=== PATIENT | female | born 1960 ===

== ENCOUNTER 2018-11-29 20:11 | Inpatient (IN) | payer MEDICAID, OTHER ==
--- NOTE | 2018-11-29 20:43 | ED PDOC ---
HPI: Chest Pain Time Seen by Provider: 11/29/18 20:30 Chief Complaint (Nursing): Chest Pain Chief Complaint (Provider): Chest Pain History Per: Patient History/Exam Limitations: no limitations Onset/Duration Of Symptoms: Hrs (since 1700 tonight) Current Symptoms Are (Timing): Still Present Additional Complaint(s): 58 year old female with no significant pmhx presents to the ED for evaluation of chest pain associated with intermittent shortness of breath since 1700 tonight. Otherwise denies fever, chills, nausea, vomiting, diarrhea, abdominal pain, leg pain, and headache. PMD: [place] Past Medical History Reviewed: Historical Data, Nursing Documentation, Vital Signs Vital Signs: Last Vital Signs Temp 98 F 11/29/18 20:18 Pulse 59 L 11/29/18 20:18 Resp 18 11/29/18 20:18 BP 160/92 H 11/29/18 20:18 Pulse Ox 98 11/29/18 20:18 - Medical History PMH: No Chronic Diseases - Surgical History Surgical History: No Surg Hx - Family History Family History: States: Unknown Family Hx - Social History Current smoker - smoking cessation education provided: No Alcohol: None Drugs: Denies - Allergies Allergies/Adverse Reactions: Allergies Allergy/AdvReac Type Severity Reaction Status Date / Time No Known Allergies Allergy Verified 11/29/18 20:18 Review of Systems ROS Statement: Except As Marked, All Systems Reviewed And Found Negative Constitutional: Negative for: Fever, Chills Cardiovascular: Positive for: Chest Pain Respiratory: Positive for: Shortness of Breath (intermittent) Gastrointestinal: Negative for: Nausea, Vomiting, Abdominal Pain, Diarrhea Musculoskeletal: Negative for: Leg Pain Neurological: Negative for: Headache Physical Exam - Reviewed Nursing Documentation Reviewed: Yes Vital Signs Reviewed: Yes - Physical Exam Appears: Positive for: No Acute Distress Head Exam: Positive for: ATRAUMATIC, NORMAL INSPECTION, NORMOCEPHALIC Skin: Positive for: Normal Color, Warm, DRY Eye Exam: Positive for: Normal appearance Neck: Positive for: Normal, Painless ROM, Supple Cardiovascular/Chest: Positive for: Regular Rate, Rhythm, Chest Non Tender Respiratory: Positive for: Normal Breath Sounds. Negative for: Accessory Muscle Use, Respiratory Distress Gastrointestinal/Abdominal: Positive for: Normal Exam, Soft. Negative for: Tenderness Back: Positive for: Normal Inspection Extremity: Positive for: Normal ROM (all extremities actively) Neurologic/Psych: Positive for: Alert, Oriented (x3). Negative for: Mo tor/Sensory Deficits - Laboratory Results Result Diagrams: 11/29/18 21:36 11/29/18 21:36 Lab Results: 27 bun - ECG ECG: Positive for: Interpreted By Me, Viewed By Me ECG Rhythm: Positive for: Normal QRS, Normal ST Segment, Sinus Rhythm O2 Sat by Pulse Oximetry: 98 (RA) Pulse Ox Interpretation: Normal - Radiology X-Ray: Interpreted by Me, Viewed By Me X-Ray Interpretation: No Acute Disease - Progress ED Course And Treament: 2245: Spoke with Dr. Leger. Will admit tele obs. Pain free. Medical Decision Making Medical Decision Making: Time: 2021 Initial Impression: chest pain Initial Plan: --EKG --CMP --Lipase --Trop I --CBC with differential --PT / PTT --CXR --Aspirin 325mg PO --Normal saline IV Scribe Attestation: Documented by Nhung Reed, acting as a scribe for Quentin Tamez MD. Provider Scribe Attestation: All medical record entries made by the Scribe were at my direction and personally dictated by me. I have reviewed the chart and agree that the record accurately reflects my personal performance of the history, physical exam, medical decision making, and the department course for this patient. I have also personally directed, reviewed, and agree with the discharge instructions and disposition. Disposition - Clinical Impression Clinical Impression: Chest pain - Patient ED Disposition Is Patient to be Admitted: Yes Counseled Patient/Family Regarding: Studies Performed, Diagnosis - Disposition Disposition Time: 20:45 Condition: FAIR
[2018-11-29] MEDS ORDERED: Sodium Chloride 0.9% 500 ML IV STA (20:52)
[2018-11-29 21:40] LABS: BASO # 0.1 K/uL (0.0-0.2); BASO % 0.9 % (0.0-2.0); EOS # 0.2 K/uL (0.0-0.7); EOS % 2.7 % (0.0-4.0); HEMOGLOBIN 12.8 g/dL (12.0-16.0); LYMPH # 2.2 K/uL (1.0-4.3); LYMPH % 35.3 % (20.0-40.0); MEAN CELL VOLUME 84.7 fl (81.0-99.0); MEAN CORPUSCULAR HEMOGLOBIN 27.3 pg (27.0-31.0); MEAN CORPUSCULAR HGB CONC 32.2 g/dL (33.0-37.0); MEAN PLATELET VOLUME 7.6 fl (7.2-11.7); MONO # 0.5 K/uL (0.0-0.8); MONO % 8.3 % (0.0-10.0); NEUT # 3.3 K/uL (1.8-7.0); NEUT % 52.8 % (50.0-75.0); RBC 4.69 Mil/uL (3.80-5.20); RED CELL DISTRIBUTION WIDTH 13.9 % (11.5-14.5); WHITE BLOOD COUNT 6.3 K/uL (4.8-10.8)
[2018-11-29 21:44] LABS: PROTHROMBIN TIME 11.3 Seconds (9.8-13.1)
[2018-11-29 21:47] LABS: PARTIAL THROMBOPLASTIN TIME 32.6 Seconds (25.6-37.1)
[2018-11-29 21:49] LABS: ALB/GLOB RATIO 1.2 (1.0-2.1); ALBUMIN 4.2 g/dL (3.5-5.0); ALT/SGPT 23 U/L (9-52); AST/SGOT 25 U/L (14-36); BLOOD UREA NITROGEN 27 mg/dl (7-17); GFR NON-AFRICAN AMERICAN > 60; LIPASE 75 U/L (23-300)
[2018-11-29] MEDS ORDERED: Sodium Chloride 0.9% 1,000 ML IV SCH (23:45)
--- NOTE | 2018-11-29 23:59 | CP.PCM.HP ---
<Melissa Fofana - Last Filed: 11/30/18 00:58> History of Present Illness - History of Present Illness History of Present Illness: 58 YO female with PMH of hypothyroidism who presents to the ED with c/o chest pain that started at 5 PM, located in the retrosternal area, 6/10 in intensity, pressure like pain, with some radiation to the back. Patient reports that she was at rest when the pain started (denies strenuous activities at time of pain onset), she reports the pain was associated with some sensation of fatigue and palpitations. Patient states she has been feeling some fatigue and occasional palpitation in the last 5 to 6 months, but has never had similar episodes of chest pain before. Patient endorses she was told she had hypothyroidism in the past, received treatment for a period of time and then her thyroid problem normalized and she is not taking any treatment at this time. Patient denies SOB, abdominal pain, heartburn, N/V/D, swallowing problems, diaphoresis, headache, fever, chills, or cough. Patient reports that her chest pain has subsided at the time of this encounter. ROS: All systems reviewed and found unremarkable, except as per HPI PMHx: Hypothyroidism FMHx: Denies MEDS: None ALLERGY: NKDA SOCHx: Denies Smoking, Rec drug use. Social occasional ETOH use. SURG: None personal financial planner: Donnell Ascencio [phone] Full code PMD: [place] ED Course: VS on arrival : HR 59, BP 160/92, RR 18, O2Sat 98%, Temp 98F Labs: CBC CMP unremarkable, Lipase 76, Troponin <0.0120 (-), CXR no infiltration noted EKG: NSR, no ST elevation or depression, inversion of T V2 and aVL MEDS administered in ED: Aspirin 325 mg PO x1 dose Present on Admission - Present on Admission Any Indicators Present on Admission: No History of DVT/PE: No History of Uncontrolled Diabetes: No Urinary Catheter: No Decubitus Ulcer Present: No Past Patient History - Past Social History Alcohol: None Drugs: Denies - CARDIAC Hx Cardiac Disorders: No - PULMONARY Hx Respiratory Disorders: No - NEUROLOGICAL Hx Neurological Disorder: No - PSYCHIATRIC Hx Psychophysiologic Disorder: No Hx Substance Use: No - SURGICAL HISTORY Hx Cholecystectomy: Yes Hx Tubal Ligation: Yes Hx Vascular Surgery: Yes (varicose veins) Meds Allergies/Adverse Reactions: Allergies Allergy/AdvReac Type Severity Reaction Status Date / Time No Known Allergies Allergy Verified 11/29/18 20:18 Physical Exam - Constitutional Appears: No Acute Distress - Head Exam Head Exam: ATRAUMATIC, NORMOCEPHALIC - Eye Exam Eye Exam: EOMI - ENT Exam ENT Exam: Mucous Membranes Moist - Neck Exam Neck exam: Positive for: Full Rom. Negative for: Tenderness, Thyromegaly - Respiratory Exam Respiratory Exam: Chest Wall Tenderness (mild reproducible pain to palpation of left lower sternum area), Clear to Auscultation Bilateral. absent: Wheezes - Cardiovascular Exam Cardiovascular Exam: REGULAR RHYTHM, RRR, +S1, +S2 - GI/Abdominal Exam GI & Abdominal Exam: Normal Bowel Sounds, Soft. absent: Tenderness - Extremities Exam Extremities exam: Negative for: calf tenderness, pedal edema - Back Exam Back exam: absent: rash noted - Neurological Exam Neurological exam: Alert, Oriented x3 - Psychiatric Exam Psychiatric exam: Normal Affect - Skin Skin Exam: Dry, Normal Color, Warm Results - Vital Signs Recent Vital Signs: Last Vital Signs Temp 98 F 11/29/18 20:18 Pulse 57 L 11/29/18 20:48 Resp 18 11/29/18 20:18 BP 169/82 H 11/29/18 20:48 Pulse Ox 98 11/29/18 22:46 - Labs Result Diagrams: 11/29/18 21:36 11/29/18 21:36 Labs: Laboratory Results - last 24 hr 11/29/18 11/29/18 11/29/18 21:36 21:36 21:36 WBC 6.3 RBC 4.69 Hgb 12.8 Hct 39.7 MCV 84.7 MCH 27.3 MCHC 32.2 L RDW 13.9 Plt Count 290 MPV 7.6 Neut % (Auto) 52.8 Lymph % (Auto) 35.3 [place] % (Auto) 8.3 Eos % (Auto) 2.7 Baso % (Auto) 0.9 Neut # (Auto) 3.3 Lymph # (Auto) 2.2 [place] # (Auto) 0.5 Eos # (Auto) 0.2 Baso # (Auto) 0.1 PT 11.3 INR 1.0 APTT 32.6 Sodium 138 Potassium 4.2 Chloride 102 Carbon Dioxide 26 Anion Gap 14 BUN 27 H Creatinine 0.8 Est GFR ( Amer) > 60 Est GFR (Non-Af Amer) > 60 Random Glucose 116 H Calcium 10.0 Total Bilirubin 0.3 AST 25 ALT 23 Alkaline Phosphatase 119 Troponin I < 0.0120 Total Protein 7.9 Albumin 4.2 Globulin 3.6 Albumin/Globulin Ratio 1.2 Lipase 75 11/29/18 21:36 WBC RBC Hgb Hct MCV MCH MCHC RDW Plt Count MPV Neut % (Auto) Lymph % (Auto) [place] % (Auto) Eos % (Auto) Baso % (Auto) Neut # (Auto) Lymph # (Auto) [place] # (Auto) Eos # (Auto) Baso # (Auto) PT INR APTT Sodium Potassium Chloride Carbon Dioxide Anion Gap BUN Creatinine Est GFR ( Amer) Est GFR (Non-Af Amer) Random Glucose Calcium Total Bilirubin AST ALT Alkaline Phosphatase Troponin I Total Protein Albumin Globulin Albumin/Globulin Ratio Lipase 76 Assessment & Plan - Assessment and Plan (Free Text) Assessment: 58 YO female with PMH of hypothyroidsm who presents with c/o chest pain located in the retrosternal area, 6/10 in intensity, pressure like pain, with some radiation to the back, with elevated BP at time of presentation and admitted to observation for Chest pain. 1.Chest pain -Telemtetry monitoring -VS Q4h, attention to BP -Troponin I: Troponin <0.0120 (-), repeat x2 more Q6h -EKG: NSR, no ST elevation or depression, inversion of T V2 aVL -Repeat EKG in ED ordered -EKG in AM -Aspirin 81 mg PO QD -NTG SL 0.4 Q5min x 3 dose PRN for chest pain -Lipid panel, f/u results -HbA1C, f/u results 2. History of Hypothyroidsm -TSH, f/u results 3.DVT prophylaxis -SCDs Code Status: Full code <Erwin Leger - Last Filed: 11/30/18 06:46> Results - Vital Signs Recent Vital Signs: Last Vital Signs Temp 97.8 F 11/30/18 02:30 Pulse 58 L 11/30/18 05:00 Resp 18 11/30/18 05:00 BP 116/80 11/30/18 05:00 Pulse Ox 97 11/30/18 05:00 - Labs Result Diagrams: 11/29/18 21:36 11/29/18 21:36 Labs: Laboratory Results - last 24 hr 11/29/18 11/29/18 11/29/18 21:36 21:36 21:36 WBC 6.3 RBC 4.69 Hgb 12.8 Hct 39.7 MCV 84.7 MCH 27.3 MCHC 32.2 L RDW 13.9 Plt Count 290 MPV 7.6 Neut % (Auto) 52.8 Lymph % (Auto) 35.3 [place] % (Auto) 8.3 Eos % (Auto) 2.7 Baso % (Auto) 0.9 Neut # (Auto) 3.3 Lymph # (Auto) 2.2 [place] # (Auto) 0.5 Eos # (Auto) 0.2 Baso # (Auto) 0.1 PT 11.3 INR 1.0 APTT 32.6 Sodium 138 Potassium 4.2 Chloride 102 Carbon Dioxide 26 Anion Gap 14 BUN 27 H Creatinine 0.8 Est GFR ( Amer) > 60 Est GFR (Non-Af Amer) > 60 Random Glucose 116 H Calcium 10.0 Total Bilirubin 0.3 AST 25 ALT 23 Alkaline Phosphatase 119 Troponin I < 0.0120 Total Protein 7.9 Albumin 4.2 Globulin 3.6 Albumin/Globulin Ratio 1.2 Triglycerides 237 H Cholesterol 209 H LDL Cholesterol Direct 96 HDL Cholesterol 68 Lipase 75 TSH 3rd Generation 6.26 H 11/29/18 11/30/18 21:36 04:25 WBC RBC Hgb Hct MCV MCH MCHC RDW Plt Count MPV Neut % (Auto) Lymph % (Auto) [place] % (Auto) Eos % (Auto) Baso % (Auto) Neut # (Auto) Lymph # (Auto) [place] # (Auto) Eos # (Auto) Baso # (Auto) PT INR APTT Sodium Potassium Chloride Carbon Dioxide Anion Gap BUN Creatinine Est GFR ( Amer) Est GFR (Non-Af Amer) Random Glucose Calcium Total Bilirubin AST ALT Alkaline Phosphatase Troponin I < 0.0120 Total Protein Albumin Globulin Albumin/Globulin Ratio Triglycerides Cholesterol LDL Cholesterol Direct HDL Cholesterol Lipase 76 TSH 3rd Generation Attending/Attestation - Attestation I have personally seen and examined this patient.: Yes I have fully participated in the care of the patient.: Yes I have reviewed all pertinent clinical information: Yes Notes (Text): 11/30/18 06:27 I saw and examined this patient with Dr Velez and Dr Andrews. I agree with the assessment and plan which represent y direct input. This is a 58 years old female with vague hx of being told that her blood pressure was elevated comes with retrosternal chest pain radiating to the back, relieved after receiving Aspirin in the ED as per patient. Initial Troponin was negative, EKG with T inversion in V1, V2, aVl. The patient will be placed on observation with serial Troponin, daily Aspirin, a nd Sublingual Nitroglycerin. consult with Cardiology and ECHO is ordered for wall motion. Treat Hypertension, Follow Thyroid Profile for Hypothyroidism, IV fluids for the Dehydration. Erwin Leger MD
[2018-11-30 00:50] LABS: HDL CHOLESTEROL 68 MG/DL (30-70)
[2018-11-30 01:01] LABS: LDL CHOLESTEROL 96 mg/dL (0-129)
[2018-11-30] MEDS ORDERED: Pneumococcal 23-Valent Vaccine IM ONE (06:00)
[2018-11-30] MEDS ORDERED: Influenza Vaccine 60 mcg/0.5 mL SYR (4YR UP) IM ONE (06:00)
[2018-11-30] MEDS ORDERED: Influenza Vaccine (5 YR UP)/PF 60 MCG/0.5 ML SYR IM ONE (06:00)
[2018-11-30] MEDS ORDERED: Sodium Chloride 0.45% 1,000 ML IV SCH (06:45)
--- NOTE | 2018-11-30 08:56 | CARD ---
APPROVED REPORT Date of service: 11/30/2018 EKG Measurement Heart [id number] 200P50 [id number] <Conclusion> Sinus rhythm with premature ventricular complexes Nonspecific T wave abnormality Prolonged QT Abnormal ECG
[2018-11-30] MEDS ORDERED: Pantoprazole 40 mg EC Tab PO SCH (09:00)
--- NOTE | 2018-11-30 09:07 | CARD ---
APPROVED REPORT Date of service: 11/29/2018 EKG Measurement Heart [id number] <Conclusion> Sinus bradycardia Otherwise normal ECG
--- NOTE | 2018-11-30 10:31 | RAD ---
Date of service: 11/29/2018 HISTORY: dyspnea COMPARISON: No prior. FINDINGS: LUNGS: Trace linear atelectasis or fibrosis right base. No infiltrate bilaterally. PLEURA: No significant pleural effusion identified, no pneumothorax apparent. CARDIOVASCULAR: No aortic atherosclerotic calcification present. Normal cardiac size. No pulmonary vascular congestion. OSSEOUS STRUCTURES: No significant abnormalities. VISUALIZED UPPER ABDOMEN: Normal. OTHER FINDINGS: None. IMPRESSION: Trace linear atelectasis or fibrosis right base with remaining lung corrales otherwise clear. No pulmonary vascular congestion.
--- NOTE | 2018-11-30 17:33 | CARD ---
APPROVED REPORT Date of service: 11/30/2018 EXAM: Two-dimensional and M-mode echocardiogram with Doppler and color Doppler. Other Information Quality : GoodRhythm : NSR INDICATION Abnormal EKG/Arrhythmia Chest Pain 2D DIMENSIONS IVSd1.12 (0.7-1.1cm)LVDd3.91 (3.9-5.9cm) LVOT Diameter2.37 (1.8-2.4cm)PWd0.97 (0.7-1.1cm) IVSs1.04 (0.8-1.2cm)LVDs2.69 (2.5-4.0cm) FS (%) 31.2 %PWs1.71 (0.8-1.2cm) M-Mode DIMENSIONS Left Atrium (MM)4.56 (2.5-4.0cm)IVSd1.06 (0.7-1.1cm) Aortic Root2.94 (2.2-3.7cm)LVDd4.62 (4.0-5.6cm) Aortic Cusp Exc.1.97 (1.5-2.0cm)PWd1.24 (0.7-1.1cm) IVSs1.68 cmFS (%) 49 % LVDs2.35 (2.0-3.8cm)PWs1.56 cm Aortic Valve AoV Peak Xyozrzgv964.5cm/sAoV VTI21.1cmAO Peak GR.4mmHg LVOT Peak Atiaowyz67.1cm/sLVOT VTI16.31cmAO Mean GR.2mmHg JESSICA (VMAX)1.27yk6EGK (VTI)2.08cm2 Mitral Valve MV E Pkilwyvz27.9cm/sMV DECEL [id number] A Dmdmpjbs50.8cm/s MV KZZ95loP/A ratio1.2MVA (PHT)2.73cm2 TDI Lateral E' Peak V7.01cm/sMedial E' Peak V5.54cm/sE/Lateral E'9.8 E/Medial E'12.4 Tricuspid Valve TR Peak Sgdhdjot082lt/sRAP QYMNHTYV88sbUbAP Peak Gr.27mmHg [id number] LEFT VENTRICLE The left ventricle is normal size. There is normal left ventricular wall thickness. The left ventricular systolic function is normal. The estimated ejection fraction is 55-60% No regional wall motion abnormalities noted.. Transmitral Doppler flow pattern is Grade II-pseudonormal filling dynamics. No left ventricle thrombus noted on this study. There is no ventricular septal defect visualized. There is no left ventricular aneurysm. There is no mass noted in the left ventricle. RIGHT VENTRICLE The right ventricle is normal size. There is normal right ventricular wall thickness. The right ventricular systolic function is normal. ATRIA The left atrium is mildly dilated. The right atrium size is normal. The interatrial septum likely has small ASD or PFO, demonstrated by color doppler. AORTIC VALVE The aortic valve is normal in structure. No aortic regurgitation is present. There is no aortic valvular stenosis. There is no aortic valvular vegetation. MITRAL VALVE The mitral valve is normal in structure. There is no evidence of mitral valve prolapse. There is no mitral valve stenosis. There is no mitral valve regurgitation noted. TRICUSPID VALVE The tricuspid valve is normal in structure. There is mild tricuspid valve regurgitation noted. RVSP is calculated at 35 mm Hg. There is no tricuspid valve prolapse or vegetation. There is no tricuspid valve stenosis. PULMONIC VALVE The pulmonary valve is normal in structure. There is no pulmonic valvular regurgitation. There is no pulmonic valvular stenosis. GREAT VESSELS The aortic root is normal in size. The ascending aorta is normal in size. The pulmonary artery is normal. The IVC is normal in size and collapses >50% with inspiration. PERICARDIAL EFFUSION There is no pericardial effusion. There is no pleural effusion. <Conclusion> The estimated ejection fraction is 55-60% Transmitral Doppler flow pattern is Grade II-pseudonormal filling dynamics. The left atrium is mildly dilated. The interatrial septum likely has small ASD or PFO, demonstrated by color doppler. There is mild tricuspid valve regurgitation noted. RVSP is calculated at 35 mm Hg.
--- NOTE | 2018-11-30 18:10 | CP.PCM.PN ---
<Burton Ibanez - Last Filed: 11/30/18 18:45> Subjective - Date & Time of Evaluation Date of Evaluation: 11/30/18 Time of Evaluation: 10:00 - Subjective Subjective: Patient seen and evaluated at bedside during morning rounds. Patient's reports resolution of chest pain but reports right shoulder pain which is reproducible. Patient comfortable in bed. NAD. No acute events overnight. Tolerating diet well PO. Denies any dizziness, headache, SOB, abdominal pain, nausea, vomiting, diarrhea. Echo, cardio consult tomorrow. Objective - Vital Signs/Intake and Output Vital Signs (last 24 hours): Temp Pulse Resp BP Pulse Ox 98.4 F 67 23 135/71 97 11/30/18 12:00 11/30/18 17:00 11/30/18 17:00 11/30/18 17:00 11/30/18 17:00 Intake and Output: 11/30/18 11/30/18 06:59 18:59 Intake Total 625 Balance 625 - Medications Medications: Current Medications Amlodipine Besylate (Norvasc) 5 mg PO DAILY [facility] Last Admin: 11/30/18 08:29 Dose: 5 mg Aspirin (Aspirin Chewable) 81 mg PO DAILY [facility] Last Admin: 11/30/18 08:30 Dose: 81 mg Atorvastatin Calcium (Lipitor) 40 mg PO DAILY [facility] Last Admin: 11/30/18 08:29 Dose: 40 mg Clopidogrel Bisulfate (Plavix) 75 mg PO DAILY [facility] Nitroglycerin (Nitrostat Sl Tab) 0.4 mg SL Q5M PRN PRN Reason: chest pain Pantoprazole Sodium (Protonix Ec Tab) 40 mg PO DAILY [facility] Last Admin: 11/30/18 08:30 Dose: 40 mg - Labs Labs: 11/29/18 21:36 11/29/18 21:36 PT 11.3 Seconds (9.8-13.1) 11/29/18 21:36 INR 1.0 11/29/18 21:36 APTT 32.6 Seconds (25.6-37.1) 11/29/18 21:36 - Constitutional Appears: Well, No Acute Distress - Head Exam Head Exam: ATRAUMATIC, NORMAL INSPECTION, NORMOCEPHALIC - Eye Exam Eye Exam: EOMI, Normal appearance - ENT Exam ENT Exam: Mucous Membranes Moist - Neck Exam Neck Exam: Full ROM - Respiratory Exam Respiratory Exam: Clear to Ausculation Bilateral, NORMAL BREATHING PATTERN. absent: Rales, Rhonchi, Wheezes, Respiratory Distress - Cardiovascular Exam Cardiovascular Exam: REGULAR RHYTHM, +S1, +S2. absent: Murmur - GI/Abdominal Exam GI & Abdominal Exam: Soft, Normal Bowel Sounds. absent: Distended, Tenderness - Extremities Exam Extremities Exam: absent: Pedal Edema, Tenderness - Back Exam Back Exam: NORMAL INSPECTION - Neurological Exam Neurological Exam: Alert, Awake, Oriented x3 - Psychiatric Exam Psychiatric exam: Normal Affect, Normal Mood - Skin Skin Exam: Dry, Intact, Normal Color, Warm Assessment and Plan - Assessment and Plan (Free Text) Assessment: 58 YO female with PMH of hypothyroidsm who presents with c/o chest pain located in the retrosternal area, 6/10 in intensity, pressure like pain, with some radiation to the back, with elevated BP at time of presentation and admitted for evaluation of Chest pain. Plan: Chest pain -Telemtetry monitoring - VSS, CP resolved -Troponin I x 3 negative -EKG: NSR, no ST elevation or depression, inversion of T V2 aVL, repeat EKG NSR, nonspecific t wave abnormality -Continue Aspirin 81 mg PO QD -HbA1C, 6.2 -Cardiology consulted, Will follow recs -Echocardiogram: EF 55-60%, Grade 2 diastolic dysfunction, Mild left atrial enlargement, ASD vs PFO interatrial, RSVP 35 mg hg -Follow up tomorrow by cardiothoracic surgeon tomorrow. HTN - On amlodipine 5 mg PO daily - Monitor vitals Hyperlipidemia - Total cholesterol 209, TG 237, LDL 96, HDL 68 - Started on Atorvastatin 40 mg PO daily History of Hypothyroidsm -TSH, f/u results DVT prophylaxis -SCDs Code Status: Full code <GirardNatashamally Renae - Last Filed: 11/30/18 19:14> Objective - Vital Signs/Intake and Output Vital Signs (last 24 hours): Temp Pulse Resp BP Pulse Ox 98.4 F 67 23 135/71 97 11/30/18 12:00 11/30/18 17:00 11/30/18 17:00 11/30/18 17:00 11/30/18 17:00 Intake and Output: 11/30/18 12/01/18 18:59 06:59 Intake Total 745 Balance 745 - Medications Medications: Current Medications Amlodipine Besylate (Norvasc) 5 mg PO DAILY [facility] Last Admin: 11/30/18 08:29 Dose: 5 mg Aspirin (Aspirin Chewable) 81 mg PO DAILY [facility] Last Admin: 11/30/18 08:30 Dose: 81 mg Atorvastatin Calcium (Lipitor) 40 mg PO DAILY [facility] Last Admin: 11/30/18 08:29 Dose: 40 mg Clopidogrel Bisulfate (Plavix) 75 mg PO DAILY [facility] Enoxaparin Sodium (Lovenox) 40 mg SC DAILY [facility]; Protocol Nitroglycerin (Nitrostat Sl Tab) 0.4 mg SL Q5M PRN PRN Reason: chest pain Pantoprazole Sodium (Protonix Ec Tab) 40 mg PO DAILY [facility] Last Admin: 11/30/18 08:30 Dose: 40 mg - Labs Labs: 11/29/18 21:36 11/29/18 21:36 PT 11.3 Seconds (9.8-13.1) 11/29/18 21:36 INR 1.0 11/29/18 21:36 APTT 32.6 Seconds (25.6-37.1) 11/29/18 21:36 Attending/Attestation - Attestation I have personally seen and examined this patient.: Yes I have fully participated in the care of the patient.: Yes I have reviewed all pertinent clinical information, including history, physical exam and plan: Yes Notes (Text): Chest Pain, ACS ruled out, pain likely musculoskeletal as this was reproducible Small ASD seen on ECHO, Mildly elevated Pulm Art Pressure , asymptomatic HTN - Trop x 3 neg - nonsp change on EKG - ECHO showed small ASD vs PFO, 35mm RSVP -Discussed case with Dr Gutiérrez- rec to start ASA, Plavix, he rec to keep pt until eval by Cardio thoracic surgeon DR Watson - start Stain -TSH sl elevated but T4 normal
--- NOTE | 2018-12-01 00:50 | CON ---
DATE: 11/30/2018 CARDIOLOGY CONSULTATION REASON FOR CONSULTATION: Chest pain. HISTORY OF PRESENT ILLNESS: The patient is a 58-year-old female, who has no significant past medical history, presents because of chest pain associated with intermittent shortness of breath on the night of admission. The patient is unaware of any prior cardiac history and was not treated for hypertension in the past. At the time of my evaluation, the patient was chest pain free. SOCIAL HISTORY: Nonsmoker, nondrinker. MEDICATIONS: Aspirin 81 mg once a day, Lipitor 40 mg once a day, sublingual nitroglycerin p.r.n., Norvasc 5 mg once a day, Protonix 40 mg once a day. REVIEW OF SYSTEMS: No nausea or vomiting. No productive cough. No chest pain or shortness of breath at the time of my evaluation. PHYSICAL EXAMINATION: GENERAL: The patient is a middle-aged female, who does not appear to be in acute distress. VITAL SIGNS: Blood pressure 144/74, heart rate 79, temperature 98.1, respirations 19. HEENT: Normocephalic. CHEST: Clear. HEART: S1 and S2, regular. ABDOMEN: Soft. EXTREMITIES: No edema. LABORATORY DATA: Admitting hemoglobin, hematocrit, white count, and platelet count are within normal limits. SMA-7 is within normal limits except for glucose of 116 and BUN of 27. Three sets of troponins are negative. Triglycerides 237, total cholesterol 209. TSH level is elevated at 6.26. EKG revealed sinus rhythm with premature ventricular complexes, nonspecific T-wave changes, prolonged QT interval. Chest x-ray showed trace linear atelectasis or fibrosis right base with remaining field otherwise clear. ASSESSMENT: 1. Chest pain, myocardial infarction is ruled out. 2. Hypertension. 3. Hyperlipidemia. RECOMMENDATIONS: Continue aspirin 81 mg once a day, Lipitor 40 mg once a day, Norvasc 5 mg once a day, and p.r.n. nitroglycerin. I will review the echocardiographic study performed today and I will obtain serum D-dimer as well as urine for drug screen. Balta Gutiérrez MD [facility] # [id number]
--- NOTE | 2018-12-01 05:39 | CP.PCM.CON ---
History of Present Illness - History of Present Illness History of Present Illness: Cardiothoracic Surgery Consult Note for Dr. Watson HPI: 58F, past medical history of hypothyroidism, consulted for evidence of atrial septal defect vs. patent foramen ovale Echocardiography. Patient initially came to the hospital with chest pain on Friday that started at 5PM and lasted for 3 hours. Patient came to the ED and had a cardiac workup done with negative troponins. Unaware of any congenital heart defects/problems. Denies any current chest pain or palpitations. Denies syncope or shortness of breath with exertion. Denies fever, chills, nausea, vomiting, shortness of breath, headaches, dizziness, or urinary symptoms. PMH: Hypothyroidism PSH: Cholecystectomy, Tubal Ligation FH: Noncontributory SH: Denies tobacco, alcohol, drugs ALL: NKDA Meds: See MAR Review of Systems - Constitutional Constitutional: absent: Chills, Fever - EENT Eyes: absent: Blurred Vision, Change in Vision Nose/Mouth/Throat: absent: Nasal Congestion, Nasal Discharge - Cardiovascular Cardiovascular: absent: Chest Pain, Dyspnea, Palpitations - Respiratory Respiratory: absent: Cough, Dyspnea - Gastrointestinal Gastrointestinal: absent: Abdominal Pain, Nausea, Vomiting - Genitourinary Genitourinary: absent: Difficulty Urinating, Dysuria - Musculoskeletal Musculoskeletal: absent: Back Pain, Neck Pain - Integumentary Integumentary: absent: Bleeding Lesions, Changing Lesions - Neurological Neurological: absent: Confusion, Dizziness - Psychiatric Psychiatric: absent: Anxiety, Depression Past Patient History - Past Medical History & Family History Past Medical History?: No - Past Social History Smoking Status: Never Smoked - CARDIAC Hx Cardiac Disorders: No - PULMONARY Hx Respiratory Disorders: No - NEUROLOGICAL Hx Neurological Disorder: No - HEENT Hx HEENT Problems: No - RENAL Hx Chronic Kidney Disease: No - ENDOCRINE/METABOLIC Hx Endocrine Disorders: No - HEMATOLOGICAL/ONCOLOGICAL Hx Blood Disorders: No - INTEGUMENTARY Hx Dermatological Problems: No - MUSCULOSKELETAL/RHEUMATOLOGICAL Hx Musculoskeletal Disorders: No Hx Falls: No - GASTROINTESTINAL Hx Gastrointestinal Disorders: No - GENITOURINARY/GYNECOLOGICAL Hx Genitourinary Disorders: No - PSYCHIATRIC Hx Psychophysiologic Disorder: No Hx Substance Use: No - SURGICAL HISTORY Hx Surgeries: Yes Hx Cholecystectomy: Yes Hx Tubal Ligation: Yes Hx Vascular Surgery: Yes (varicose veins) - ANESTHESIA Hx Anesthesia: Yes Hx Anesthesia Reactions: Yes Hx Malignant Hyperthermia: No Meds Allergies/Adverse Reactions: Allergies Allergy/AdvReac Type Severity Reaction Status Date / Time No Known Allergies Allergy Verified 11/29/18 20:18 - Medications Medications: Current Medications Amlodipine Besylate (Norvasc) 5 mg PO DAILY [facility] Last Admin: 11/30/18 08:29 Dose: 5 mg Aspirin (Aspirin Chewable) 81 mg PO DAILY [facility] Last Admin: 11/30/18 08:30 Dose: 81 mg Atorvastatin Calcium (Lipitor) 40 mg PO DAILY [facility] Last Admin: 11/30/18 08:29 Dose: 40 mg Clopidogrel Bisulfate (Plavix) 75 mg PO DAILY [facility] Last Admin: 11/30/18 21:00 Dose: 75 mg Enoxaparin Sodium (Lovenox) 40 mg SC DAILY [facility]; Protocol Famotidine (Pepcid) 20 mg PO BID [facility] Last Admin: 11/30/18 21:00 Dose: 20 mg Nitroglycerin (Nitrostat Sl Tab) 0.4 mg SL Q5M PRN PRN Reason: chest pain Physical Exam - Constitutional Appears: Well, Non-toxic, No Acute Distress - Head Exam Head Exam: ATRAUMATIC, NORMAL INSPECTION, NORMOCEPHALIC - Eye Exam Eye Exam: EOMI - ENT Exam ENT Exam: Mucous Membranes Moist - Respiratory Exam Respiratory Exam: NORMAL BREATHING PATTERN. absent: Respiratory Distress - Cardiovascular Exam Cardiovascular Exam: REGULAR RHYTHM. absent: Tachycardia - GI/Abdominal Exam GI & Abdominal Exam: Normal Bowel Sounds, Soft. absent: Tenderness - Neurological Exam Neurological exam: Alert, Oriented x3 - Psychiatric Exam Psychiatric exam: Normal Affect, Normal Mood - Skin Skin Exam: Dry, Intact, Normal Color, Warm Results - Vital Signs Recent Vital Signs: Last Vital Signs Temp 98.2 F 12/01/18 01:00 Pulse 62 12/01/18 01:00 Resp 21 12/01/18 01:00 BP 137/79 12/01/18 01:00 Pulse Ox 95 12/01/18 01:00 - Labs Result Diagrams: 12/01/18 04:20 12/01/18 04:20 Labs: Laboratory Results - last 24 hr 11/30/18 11/30/18 11/30/18 00:00 07:25 11:50 D-Dimer, Quantitative Hemoglobin A1c 6.2 Troponin I < 0.0120 Free T4 0.83 11/30/18 14:30 D-Dimer, Quantitative < 200 Hemoglobin A1c Troponin I Free T4 Assessment & Plan - Assessment and Plan (Free Text) Assessment: 58F w/ ASD vs PFO seen on ECHO, initially came with chest pain now resolved Plan: No immediate surgical intervention at this time Follow up outpatient with Dr. Watson - contact info: , please make appointment at earliest convenience D/w Dr. Walter Abel PGY1
[2018-12-01 05:44] LABS: HEMOGLOBIN 13.2 g/dL (12.0-16.0); MEAN CELL VOLUME 84.2 fl (81.0-99.0); MEAN CORPUSCULAR HEMOGLOBIN 27.4 pg (27.0-31.0); MEAN CORPUSCULAR HGB CONC 32.6 g/dL (33.0-37.0); RBC 4.8 Mil/uL (3.80-5.20); RED CELL DISTRIBUTION WIDTH 14.3 % (11.5-14.5); WHITE BLOOD COUNT 5.9 K/uL (4.8-10.8)
[2018-12-01 05:58] LABS: ALB/GLOB RATIO 0.9 (1.0-2.1); ALBUMIN 3.6 g/dL (3.5-5.0); ALT/SGPT 21 U/L (9-52); AST/SGOT 26 U/L (14-36); BLOOD UREA NITROGEN 23 mg/dl (7-17); GFR NON-AFRICAN AMERICAN > 60
[2018-12-01 06:08] LABS: BARBITURATES, UR NEGATIVE (NEGATIVE); BENZODIAZEPINES, UR NEGATIVE (NEGATIVE); OPIATES, UR NEGATIVE (NEGATIVE); PHENCYCLIDINE, UR NEGATIVE (NEGATIVE)
[2018-12-01] MEDS: Enoxaparin 40 mg Syringe SC SCH (08:45)
--- NOTE | 2018-12-01 10:49 | CP.PCM.DIS ---
Provider - Provider Date of Admission: 11/29/18 22:51 Attending physician: Erwin Leger Consults: 11/30/18 06:14 Cardiology Consult Routine Comment: Consulting Provider: Balta Gutiérrez Consulting Physician: Balta Gutiérrez Reason for Consult: Chest Pain/abnormal EKG 11/30/18 17:53 Physician Consult Routine Comment: Consulting Provider: Ayden Watson Consulting Physician: Ayden Watson Reason for Consult: ? ASD Time Spent in preparation of Discharge (in minutes): 35 Diagnosis - Discharge Diagnosis (1) Chest pain Status: Acute (2) Hypertension Status: Acute Hospital Course - Lab Results Lab Results: Most Recent Lab Values WBC 5.9 K/uL (4.8-10.8) 12/01/18 04:20 RBC 4.80 Mil/uL (3.80-5.20) 12/01/18 04:20 Hgb 13.2 g/dL (12.0-16.0) 12/01/18 04:20 Hct 40.4 % (34.0-47.0) 12/01/18 04:20 MCV 84.2 fl (81.0-99.0) 12/01/18 04:20 MCH 27.4 pg (27.0-31.0) 12/01/18 04:20 MCHC 32.6 g/dL (33.0-37.0) L 12/01/18 04:20 RDW 14.3 % (11.5-14.5) 12/01/18 04:20 Plt Count 307 K/uL (130-400) 12/01/18 04:20 MPV 7.6 fl (7.2-11.7) 11/29/18 21:36 Neut % (Auto) 52.8 % (50.0-75.0) 11/29/18 21:36 Lymph % (Auto) 35.3 % (20.0-40.0) 11/29/18 21:36 [place] % (Auto) 8.3 % (0.0-10.0) 11/29/18 21:36 Eos % (Auto) 2.7 % (0.0-4.0) 11/29/18 21:36 Baso % (Auto) 0.9 % (0.0-2.0) 11/29/18 21:36 Neut # (Auto) 3.3 K/uL (1.8-7.0) 11/29/18 21:36 Lymph # (Auto) 2.2 K/uL (1.0-4.3) 11/29/18 21:36 [place] # (Auto) 0.5 K/uL (0.0-0.8) 11/29/18 21:36 Eos # (Auto) 0.2 K/uL (0.0-0.7) 11/29/18 21:36 Baso # (Auto) 0.1 K/uL (0.0-0.2) 11/29/18 21:36 PT 11.3 Seconds (9.8-13.1) 11/29/18 21:36 INR 1.0 11/29/18 21:36 APTT 32.6 Seconds (25.6-37.1) 11/29/18 21:36 D-Dimer, Quantitative < 200 ng/mlDDU (0-230) 11/30/18 14:30 Sodium 139 mmol/l (132-148) 12/01/18 04:20 Potassium 4.0 MMOL/L (3.6-5.0) 12/01/18 04:20 Chloride 108 mmol/L (98-107) H 12/01/18 04:20 Carbon Dioxide 23 mmol/L (22-30) 12/01/18 04:20 Anion Gap 12 (10-20) 12/01/18 04:20 BUN 23 mg/dl (7-17) H 12/01/18 04:20 Creatinine 0.7 mg/dl (0.7-1.2) 12/01/18 04:20 Est GFR ( Amer) > 60 12/01/18 04:20 Est GFR (Non-Af Amer) > 60 12/01/18 04:20 Random Glucose 107 mg/dL (65-105) H 12/01/18 04:20 Hemoglobin A1c 6.2 % (4.2-6.5) 11/30/18 00:00 Calcium 10.0 mg/dL (8.4-10.2) 12/01/18 04:20 Total Bilirubin 0.5 mg/dl (0.2-1.3) 12/01/18 04:20 AST 26 U/L (14-36) 12/01/18 04:20 ALT 21 U/L (9-52) 12/01/18 04:20 Alkaline Phosphatase 95 U/L (38-126) 12/01/18 04:20 Troponin I < 0.0120 ng/mL (0.00-0.120) 11/30/18 11:50 Total Protein 7.4 G/DL (6.3-8.2) 12/01/18 04:20 Albumin 3.6 g/dL (3.5-5.0) 12/01/18 04:20 Globulin 3.8 gm/dL (2.2-3.9) 12/01/18 04:20 Albumin/Globulin Ratio 0.9 (1.0-2.1) L 12/01/18 04:20 Triglycerides 237 mg/DL (0-149) H 11/29/18 21:36 Cholesterol 209 mg/dL (0-199) H 11/29/18 21:36 LDL Cholesterol Direct 96 mg/dL (0-129) 11/29/18 21:36 HDL Cholesterol 68 MG/DL (30-70) 11/29/18 21:36 Lipase 75 U/L (23-300) 11/29/18 21:36 Free T4 0.83 ng/dL (0.78-2.19) 11/30/18 07:25 TSH 3rd Generation 6.26 mIU/ML (0.46-4.68) H 11/29/18 21:36 Urine Opiates Screen Negative (NEGATIVE) 12/01/18 05:00 Urine Methadone Screen Negative (NEGATIVE) 12/01/18 05:00 Ur Barbiturates Screen Negative (NEGATIVE) 12/01/18 05:00 Ur Phencyclidine Scrn Negative (NEGATIVE) 12/01/18 05:00 Ur Amphetamines Screen Negative (NEGATIVE) 12/01/18 05:00 U Benzodiazepines Scrn Negative (NEGATIVE) 12/01/18 05:00 U Oth Cocaine Metabols Negative (NEGATIVE) 12/01/18 05:00 U Cannabinoids Screen Negative (NEGATIVE) 12/01/18 05:00 - Hospital Course Hospital Course: 58 y/o F with PMhx of hypothyroidism presents to ED with C/O 1 day H/O left sided pressure like chest pain radiating to back. Patient evaluated in ED, VS on arrival: HR 59, BP 160/92, RR 18, O2Sat 98%, Temp 98F. Labs: CBC, CMP unremarkable, Lipase 76, Troponin <0.0120 (Neg x 3), CXR no infiltration noted, EKG: NSR, no ST elevation or depression, inversion of T V2 and aVL, MEDS administered in ED: Aspirin 325 mg PO x1 dose. Cardiology consulted. Patient admitted to telemetry for monitoring. Repeat EKG in morning showed NSR with nonspecific T wave changes. Lipid panel, Hemoglobin A1c (6.2), TSH 6.26, T4 0.83. Patients chest pain resolved with medications. Echocardiogram done showed EF 55-60%, mild left atrial enlargement and small ASD/PFO. Cardiothroacic surgeon consulted who recommended outpatient follow up at earliest. Patient also undergo stress test before discharge with results pending. Patients VSS and asymptomatic upon discharge. Patient to D/C home and will follow up with mechanical shovel operator and cardiothoracic surgeon on outpatient basis for possible stress test. Discharge medications. ASA 81 mg PO daily Lipitor 40 mg PO daily Amlodipine 5 mg PO daily Discharge Exam - Head Exam Head Exam: ATRAUMATIC, NORMAL INSPECTION, NORMOCEPHALIC - Eye Exam Eye Exam: EOMI, Normal appearance - ENT Exam ENT Exam: Mucous Membranes Moist - Neck Exam Neck exam: Full Rom - Respiratory Exam Respiratory Exam: Clear to PA & Lateral, UNREMARKABLE. absent: Rhonchi, Wheezes, Respiratory Distress - Cardiovascular Exam Cardiovascular Exam: REGULAR RHYTHM, +S1, +S2. absent: Systolic Murmur - GI/Abdominal Exam GI & Abdominal Exam: Normal Bowel Sounds, Soft, Unremarkable. absent: Tenderness - Neurological Exam Neurological exam: Alert, Normal Gait, Oriented x3 - Psychiatric Exam Psychiatric exam: Normal Affect, Normal Mood - Skin Skin Exam: Dry, Intact, Normal Color, Warm Discharge Plan - Discharge Medications Prescriptions: amLODIPine [Norvasc] 5 mg PO DAILY #30 tab Aspirin [Aspirin Chewable] 81 mg PO DAILY #30 chew Atorvastatin [Lipitor] 40 mg PO DAILY #30 tab - Follow Up Plan Condition: GOOD Disposition: HOME/ ROUTINE Patient education suggested?: Yes Instructions: Chest Pain, Hypertension (DC) Additional Instructions: Please follow up with cardiothoracic surgeon, Dr. Waston, by calling and making an appointment. Follow up with PMD Referrals: Ayden Watson MD [Staff Provider] -
--- NOTE | 2018-12-01 10:57 | CP.PCM.PN ---
Subjective - Date & Time of Evaluation Date of Evaluation: 12/01/18 Time of Evaluation: 10:50 - Subjective Subjective: Patient was scheduled for regular stress test. Patient initial EKG showed abnormal st changes on V2. Now she has new changes on V3 to V5. Dr Valdes Marine Water Tender contacted and patient to be cancelled and patient to be scheduled for Cardiac Catheterization. Objective - Vital Signs/Intake and Output Vital Signs (last 24 hours): Temp Pulse Resp BP Pulse Ox 98.3 F 68 16 118/71 100 12/01/18 08:00 12/01/18 08:49 12/01/18 08:49 12/01/18 08:49 12/01/18 08:49 Intake and Output: 12/01/18 12/01/18 06:59 18:59 Intake Total 50 350 Balance 50 350 - Medications Medications: Current Medications Amlodipine Besylate (Norvasc) 5 mg PO DAILY [facility] Last Admin: 12/01/18 08:45 Dose: 5 mg Aspirin (Aspirin Chewable) 81 mg PO DAILY [facility] Last Admin: 12/01/18 08:44 Dose: 81 mg Atorvastatin Calcium (Lipitor) 40 mg PO DAILY [facility] Last Admin: 12/01/18 08:45 Dose: 40 mg Clopidogrel Bisulfate (Plavix) 75 mg PO DAILY [facility] Last Admin: 12/01/18 08:46 Dose: 75 mg Enoxaparin Sodium (Lovenox) 40 mg SC DAILY [facility]; Protocol Last Admin: 12/01/18 08:45 Dose: 40 mg Famotidine (Pepcid) 20 mg PO BID [facility] Last Admin: 12/01/18 08:46 Dose: 20 mg Nitroglycerin (Nitrostat Sl Tab) 0.4 mg SL Q5M PRN PRN Reason: chest pain - Labs Labs: 12/01/18 04:20 12/01/18 04:20 PT 11.3 Seconds (9.8-13.1) 11/29/18 21:36 INR 1.0 11/29/18 21:36 APTT 32.6 Seconds (25.6-37.1) 11/29/18 21:36
--- NOTE | 2018-12-01 15:05 | CP.PCM.PN ---
Subjective - Date & Time of Evaluation Date of Evaluation: 12/01/18 Time of Evaluation: 10:30 - Subjective Subjective: Patient was seen and examined bedside . All chart and clinical data reviewed . Care resumed . Patient is hemodynamically stable, afebrile. Denies any more chest pain or SOB no acute issues overnight Exercise stress test cancelled today by air pollution control engineer due to new EKG changes. Plan for cardiac cath on Friday Objective - Vital Signs/Intake and Output Vital Signs (last 24 hours): Temp Pulse Resp BP Pulse Ox 98.5 F 69 21 117/74 100 12/01/18 12:00 12/01/18 12:49 12/01/18 12:49 12/01/18 12:49 12/01/18 12:49 Intake and Output: 12/01/18 12/01/18 06:59 18:59 Intake Total 50 350 Balance 50 350 - Medications Medications: Current Medications Amlodipine Besylate (Norvasc) 5 mg PO DAILY [facility] Last Admin: 12/01/18 08:45 Dose: 5 mg Aspirin (Aspirin Chewable) 81 mg PO DAILY [facility] Last Admin: 12/01/18 08:44 Dose: 81 mg Atorvastatin Calcium (Lipitor) 40 mg PO DAILY [facility] Last Admin: 12/01/18 08:45 Dose: 40 mg Clopidogrel Bisulfate (Plavix) 75 mg PO DAILY [facility] Last Admin: 12/01/18 08:46 Dose: 75 mg Enoxaparin Sodium (Lovenox) 40 mg SC DAILY [facility]; Protocol Last Admin: 12/01/18 08:45 Dose: 40 mg Famotidine (Pepcid) 20 mg PO BID [facility] Last Admin: 12/01/18 08:46 Dose: 20 mg Nitroglycerin (Nitrostat Sl Tab) 0.4 mg SL Q5M PRN PRN Reason: chest pain - Labs Labs: 12/01/18 04:20 12/01/18 04:20 PT 11.3 Seconds (9.8-13.1) 11/29/18 21:36 INR 1.0 11/29/18 21:36 APTT 32.6 Seconds (25.6-37.1) 11/29/18 21:36 - Constitutional Appears: Non-toxic, No Acute Distress - Head Exam Head Exam: ATRAUMATIC, NORMAL INSPECTION, NORMOCEPHALIC - Eye Exam Eye Exam: EOMI, Normal appearance, PERRL Pupil Exam: NORMAL ACCOMODATION - ENT Exam ENT Exam: Mucous Membranes Moist, Normal Exam - Neck Exam Neck Exam: Full ROM, Normal Inspection - Respiratory Exam Respiratory Exam: Clear to Ausculation Bilateral, NORMAL BREATHING PATTERN. absent: Rales, Rhonchi, Wheezes - Cardiovascular Exam Cardiovascular Exam: REGULAR RHYTHM, RRR, +S1, +S2. absent: JVD - GI/Abdominal Exam GI & Abdominal Exam: Soft, Normal Bowel Sounds. absent: Distended, Guarding, Tenderness, Rebound - Rectal Exam Rectal Exam: Deferred - Extremities Exam Extremities Exam: Full ROM, Normal Capillary Refill, Normal Inspection. absent: Pedal Edema - Back Exam Back Exam: NORMAL INSPECTION - Neurological Exam Neurological Exam: Alert, Awake, CN II-XII Intact, Normal Gait, Oriented x3 - Psychiatric Exam Psychiatric exam: Normal Affect, Normal Mood - Skin Skin Exam: Dry, Intact, Normal Color, Warm Assessment and Plan - Assessment and Plan (Free Text) Assessment: 58 y/o female with PMH of hypothyroidism presented to the ED with chest pain in the retrosternal area, 6/10 in intensity, pressure like pain, with some radi ation to the back. She was placed under observation in telemetry for chest pain r/o ACS , cardiology consulted and Troponins were cycled 1. Chest pain Most likely non cardiac ion nature Trop x3 negative Echo showed normal Ef and wall motion ,small ASD Cardiology consulted Plan for cardiac cath on Friday Referred to Cardiothoracic surgeon Dr. Olson for ASD repair as outpatient 2.Hypertension uncontrolled started Norvasc 3. Hypythyroidism not taking any meds Will start Synthroid 25mcg 4. DVT prophylaxis SCD
--- NOTE | 2018-12-01 21:20 | PN ---
DATE: 12/01/2018 SUBJECTIVE: The patient was booked for treadmill stress test; however, as per Dr. Roach, the site identification specialist, the patient had anterior ischemic EKG changes and the stress test was canceled, and the patient was sent back to the floor. The patient denies any chest pain. PHYSICAL EXAMINATION: VITAL SIGNS: Blood pressure 116/74, heart rate 57, temperature 98.5, respirations 23. HEENT: Normocephalic. CHEST: Clear. HEART: S1, S2, regular. EXTREMITIES: No edema. LABORATORY DATA: Today's SMA-7: Within normal limits except chloride 103, BUN 23, and glucose 107. Echocardiograph study was reviewed and the official report stated normal ejection fraction. Interatrial septum likely has a small ASD or PFO which I agree with and there was mild pulmonary hypertension. ASSESSMENT: 1. Chest pain, myocardial infarction is ruled out. 2. Patent foramen ovale versus small atrial septal defect. 3. Mild pulmonary hypertension. RECOMMENDATIONS: Case was discussed with hospitalist and with the patient and her . The patient will be continued on aspirin, Lipitor, Lovenox, Norvasc, Plavix resume in two weeks. Cardiac catheterization is scheduled at [facility] on Friday. The reason for this delay that the mechanical assembly technician team that he is familiar with handling a atrial septal defect computer measurements, cardiac output by both, O2 saturation, and some of the will be available only on Friday. Balta Gutiérrez MD
[2018-12-02 05:31] LABS: HEMOGLOBIN 13.5 g/dL (12.0-16.0); MEAN CELL VOLUME 84.5 fl (81.0-99.0); MEAN CORPUSCULAR HEMOGLOBIN 27.6 pg (27.0-31.0); MEAN CORPUSCULAR HGB CONC 32.6 g/dL (33.0-37.0); RBC 4.9 Mil/uL (3.80-5.20); RED CELL DISTRIBUTION WIDTH 13.9 % (11.5-14.5); WHITE BLOOD COUNT 5.7 K/uL (4.8-10.8)
[2018-12-02 06:18] LABS: INR 1.1
[2018-12-02] MEDS: Levothyroxine 25 MCG TAB PO SCH (06:22)
[2018-12-02 06:39] LABS: PARTIAL THROMBOPLASTIN TIME 32.9 Seconds (25.6-37.1)
[2018-12-02 06:47] LABS: ALBUMIN 4.3 g/dL (3.5-5.0); BLOOD UREA NITROGEN 26 mg/dl (7-17); CALCIUM 10.1 mg/dL (8.4-10.2); GFR NON-AFRICAN AMERICAN > 60
[2018-12-02 06:48] LABS: ALB/GLOB RATIO 1.2 (1.0-2.1); ALT/SGPT 30 U/L (9-52); AST/SGOT 32 U/L (14-36)
[2018-12-02] MEDS: Enoxaparin 40 mg Syringe SC SCH (08:20)
--- NOTE | 2018-12-02 17:41 | CP.PCM.PN ---
Subjective - Date & Time of Evaluation Date of Evaluation: 12/02/18 Time of Evaluation: 09:40 - Subjective Subjective: Patient seen and evaluated at bedside in AM. NAD. No acute events overnight. Denies any chest pain, SOB, dizziness, headache, N/V/D. Patient NPO since midnight. Scheduled for cardiac cath today at [facility]. Dr. Valdes aware. Patient will return to [facility] S/P cath. Objective - Vital Signs/Intake and Output Vital Signs (last 24 hours): Temp Pulse Resp BP Pulse Ox 98.2 F 62 13 127/90 98 12/02/18 08:00 12/02/18 09:00 12/02/18 08:00 12/02/18 08:58 12/02/18 08:00 Intake and Output: 12/02/18 12/02/18 06:59 18:59 Intake Total 100 Balance 100 - Medications Medications: Current Medications Amlodipine Besylate (Norvasc) 5 mg PO DAILY [facility] Last Admin: 12/02/18 08:58 Dose: Not Given Aspirin (Aspirin Chewable) 81 mg PO DAILY [facility] Last Admin: 12/02/18 08:57 Dose: 81 mg Atorvastatin Calcium (Lipitor) 40 mg PO DAILY [facility] Last Admin: 12/02/18 08:58 Dose: Not Given Clopidogrel Bisulfate (Plavix) 75 mg PO DAILY [facility] Last Admin: 12/02/18 08:56 Dose: 75 mg Enoxaparin Sodium (Lovenox) 40 mg SC DAILY [facility]; Protocol Last Admin: 12/02/18 08:20 Dose: Not Given Famotidine (Pepcid) 20 mg PO BID [facility] Last Admin: 12/02/18 08:59 Dose: Not Given Levothyroxine Sodium (Synthroid) 25 mcg PO DAILY@0630 [facility] Last Admin: 12/02/18 06:22 Dose: Not Given Nitroglycerin (Nitrostat Sl Tab) 0.4 mg SL Q5M PRN PRN Reason: chest pain - Labs Labs: 12/02/18 04:45 12/02/18 04:45 PT 12.0 Seconds (9.8-13.1) 12/02/18 04:45 INR 1.1 12/02/18 04:45 APTT 32.9 Seconds (25.6-37.1) 02/27/19 04:45 - Constitutional Appears: Well, No Acute Distress - Head Exam Head Exam: ATRAUMATIC, NORMAL INSPECTION, NORMOCEPHALIC - Eye Exam Eye Exam: EOMI, Normal appearance Pupil Exam: NORMAL ACCOMODATION - ENT Exam ENT Exam: Mucous Membranes Moist - Neck Exam Neck Exam: Full ROM, Normal Inspection - Respiratory Exam Respiratory Exam: Clear to Ausculation Bilateral, NORMAL BREATHING PATTERN. absent: Rales, Rhonchi, Wheezes, Respiratory Distress - Cardiovascular Exam Cardiovascular Exam: REGULAR RHYTHM, +S1, +S2. absent: Murmur - GI/Abdominal Exam GI & Abdominal Exam: Soft, Normal Bowel Sounds. absent: Distended, Tenderness - Extremities Exam Extremities Exam: absent: Calf Tenderness, Pedal Edema, Tenderness - Neurological Exam Neurological Exam: Alert, Awake, Normal Gait, Oriented x3 - Psychiatric Exam Psychiatric exam: Normal Affect, Normal Mood - Skin Skin Exam: Dry, Intact, Normal Color, Warm Assessment and Plan (1) Chest pain Status: Acute (2) Hypertension Status: Acute - Assessment and Plan (Free Text) Assessment: 58 y/o female with PMH of hypothyroidism presented to the ED with chest pain in the retrosternal area, 6/10 in intensity, pressure like pain, with some radiation to the back. She was placed under observation in telemetry for chest pain r/o ACS , cardiology consulted and Troponins were cycled. Patient scheduled for cardiac cath today at [facility]. Patient will r eturn at 9PM today and likely DC tomorrow. Plan: 1. Chest pain Most likely non cardiac ion nature Trop x3 negative Echo showed normal Ef and wall motion ,small ASD Cardiology consulted Plan for cardiac cath Today Will return at 9PM after recovery in [facility] ICU. Referred to Cardiothoracic surgeon Dr. Olson for ASD repair as outpatient 2.Hypertension uncontrolled started Norvasc 3. Hypythyroidism not taking any meds Will start Synthroid 25mcg 4. DVT prophylaxis SCD
--- NOTE | 2018-12-03 01:47 | CP.PCM.PCO ---
Assessment and Plan - Assessment and Plan (Free Text) Assessment: Pt seen and examined s/p Cath at [facility]. Seen lying in bed comfortably. Denied any discomfort. R. Groin evaluated, dressing in place- clean, dry and intact, no swelling or ecchymosis. Normal distal pulses +2/2. Vitals stable. As per RN at [facility], no stents placed.
[2018-12-03] MEDS: Levothyroxine 25 MCG TAB PO SCH (05:47)
[2018-12-03 08:25] VITALS: RESP 20; O2SAT 96
[2018-12-03] MEDS: Enoxaparin 40 mg Syringe SC SCH (09:08)
[2018-12-03 12:49] VITALS: BP 103/67; PULSE 74; TEMP 97.9
--- NOTE | 2018-12-03 13:15 | CP.PCM.DIS ---
<Burton Ibanez - Last Filed: 12/03/18 13:11> Provider - Provider Date of Admission: 12/01/18 14:58 Attending physician: Erwin Leger Consults: 11/30/18 06:14 Cardiology Consult Routine Comment: Consulting Provider: Balta Gutiérrez Consulting Physician: Balta Gutiérrez Reason for Consult: Chest Pain/abnormal EKG 11/30/18 17:53 Physician Consult Routine Comment: Consulting Provider: Ayden Watson Consulting Physician: Ayden Watson Reason for Consult: ? ASD Time Spent in preparation of Discharge (in minutes): 35 Diagnosis - Discharge Diagnosis (1) Chest pain not due to acute coronary syndrome Status: Acute (2) Hypertension Status: Acute (3) Hypothyroidism Status: Acute Hospital Course - Lab Results Lab Results: Micro Results 11/30/18 08:46 Naris MRSA Culture (Admit) - Final MRSA NOT DETECTED Most Recent Lab Values WBC 5.7 K/uL (4.8-10.8) 12/02/18 04:45 RBC 4.90 Mil/uL (3.80-5.20) 12/02/18 04:45 Hgb 13.5 g/dL (12.0-16.0) 12/02/18 04:45 Hct 41.4 % (34.0-47.0) 12/02/18 04:45 MCV 84.5 fl (81.0-99.0) 12/02/18 04:45 MCH 27.6 pg (27.0-31.0) 12/02/18 04:45 MCHC 32.6 g/dL (33.0-37.0) L 12/02/18 04:45 RDW 13.9 % (11.5-14.5) 12/02/18 04:45 Plt Count 298 K/uL (130-400) 12/02/18 04:45 MPV 7.6 fl (7.2-11.7) 11/29/18 21:36 Neut % (Auto) 52.8 % (50.0-75.0) 11/29/18 21:36 Lymph % (Auto) 35.3 % (20.0-40.0) 11/29/18 21:36 [place] % (Auto) 8.3 % (0.0-10.0) 11/29/18 21:36 Eos % (Auto) 2.7 % (0.0-4.0) 11/29/18 21:36 Baso % (Auto) 0.9 % (0.0-2.0) 11/29/18 21:36 Neut # (Auto) 3.3 K/uL (1.8-7.0) 11/29/18 21:36 Lymph # (Auto) 2.2 K/uL (1.0-4.3) 11/29/18 21:36 [place] # (Auto) 0.5 K/uL (0.0-0.8) 11/29/18 21:36 Eos # (Auto) 0.2 K/uL (0.0-0.7) 11/29/18 21:36 Baso # (Auto) 0.1 K/uL (0.0-0.2) 11/29/18 21:36 PT 12.0 Seconds (9.8-13.1) 12/02/18 04:45 INR 1.1 12/02/18 04:45 APTT 32.9 Seconds (25.6-37.1) 12/02/18 04:45 D-Dimer, Quantitative < 200 ng/mlDDU (0-230) 11/30/18 14:30 Sodium 140 mmol/l (132-148) 12/02/18 04:45 Potassium 4.0 MMOL/L (3.6-5.0) 12/02/18 04:45 Chloride 103 mmol/L (98-107) 12/02/18 04:45 Carbon Dioxide 25 mmol/L (22-30) 12/02/18 04:45 Anion Gap 16 (10-20) 12/02/18 04:45 BUN 26 mg/dl (7-17) H 12/02/18 04:45 Creatinine 0.8 mg/dl (0.7-1.2) 12/02/18 04:45 Est GFR ( Amer) > 60 12/02/18 04:45 Est GFR (Non-Af Amer) > 60 12/02/18 04:45 Random Glucose 113 mg/dL (65-105) H 12/02/18 04:45 Hemoglobin A1c 6.2 % (4.2-6.5) 11/30/18 00:00 Calcium 10.1 mg/dL (8.4-10.2) 12/02/18 04:45 Total Bilirubin 0.5 mg/dl (0.2-1.3) 12/02/18 04:45 AST 32 U/L (14-36) 12/02/18 04:45 ALT 30 U/L (9-52) 12/02/18 04:45 Alkaline Phosphatase 107 U/L (38-126) 12/02/18 04:45 Troponin I < 0.0120 ng/mL (0.00-0.120) 11/30/18 11:50 Total Protein 7.9 G/DL (6.3-8.2) 12/02/18 04:45 Albumin 4.3 g/dL (3.5-5.0) 12/02/18 04:45 Globulin 3.6 gm/dL (2.2-3.9) 12/02/18 04:45 Albumin/Globulin Ratio 1.2 (1.0-2.1) 12/02/18 04:45 Triglycerides 237 mg/DL (0-149) H 11/29/18 21:36 Cholesterol 209 mg/dL (0-199) H 11/29/18 21:36 LDL Cholesterol Direct 96 mg/dL (0-129) 11/29/18 21:36 HDL Cholesterol 68 MG/DL (30-70) 11/29/18 21:36 Lipase 75 U/L (23-300) 11/29/18 21:36 Free T4 0.83 ng/dL (0.78-2.19) 11/30/18 07:25 TSH 3rd Generation 6.26 mIU/ML (0.46-4.68) H 11/29/18 21:36 Urine Opiates Screen Negative (NEGATIVE) 12/01/18 05:00 Urine Methadone Screen Negative (NEGATIVE) 12/01/18 05:00 Ur Barbiturates Screen Negative (NEGATIVE) 12/01/18 05:00 Ur Phencyclidine Scrn Negative (NEGATIVE) 12/01/18 05:00 Ur Amphetamines Screen Negative (NEGATIVE) 12/01/18 05:00 U Benzodiazepines Scrn Negative (NEGATIVE) 12/01/18 05:00 U Oth Cocaine Metabols Negative (NEGATIVE) 12/01/18 05:00 U Cannabinoids Screen Negative (NEGATIVE) 12/01/18 05:00 - Hospital Course Hospital Course: 58 y/o F with PMhx of hypothyroidism presents to ED with C/O 1 day H/O left sided pressure like chest pain radiating to back. Patient evaluated in ED, VS on arrival: HR 59, BP 160/92, RR 18, O2Sat 98%, Temp 98F. Labs: CBC, CMP unremarkable, Lipase 76, Troponin <0.0120 (Neg x 3), CXR no infiltration noted, EKG: NSR, no ST elevation or depression, inversion of T V2 and aVL, MEDS administered in ED: Aspirin 325 mg PO x1 dose. Cardiology consulted. Patient admitted to telemetry for monitoring. Repeat EKG in morning showed NSR with nonspecific T wave changes. Lipid panel, Hemoglobin A1c (6.2), TSH 6.26, T4 0.83. Patients chest pain resolved with medications. Echocardiogram done showed EF 55-60%, mild left atrial enlargement and small ASD/PFO. Patient undergo Cardiac cath at [facility] which showed no CAD and no obvious ASD on cath. Patient stayed at [facility] overnight for observation with stable VS. Patient to D/C home and will follow up with [facility], assistant principal and cardiothoracic surgeon on outpatient basis. Discharge medications. - ASA 81 mg PO daily - Lipitor 40 mg PO daily - Amlodipine 5 mg PO daily - Levothyroxine 25 mcg PO daily Discharge Exam - Head Exam Head Exam: ATRAUMATIC, NORMAL INSPECTION, NORMOCEPHALIC - Eye Exam Eye Exam: EOMI, Normal appearance - Respiratory Exam Respiratory Exam: Clear to PA & Lateral, UNREMARKABLE. absent: Rales, Rhonchi, Wheezes, Respiratory Distress - Cardiovascular Exam Cardiovascular Exam: REGULAR RHYTHM, +S1, +S2 - GI/Abdominal Exam GI & Abdominal Exam: Normal Bowel Sounds. absent: Distended, Soft, Tenderness - Neurological Exam Neurological exam: Alert, Oriented x3 - Psychiatric Exam Psychiatric exam: Normal Affect, Normal Mood - Skin Skin Exam: Dry, Intact, Normal Color, Warm Discharge Plan - Discharge Medications Prescriptions: amLODIPine [Norvasc] 5 mg PO DAILY #30 tab Aspirin [Aspirin Chewable] 81 mg PO DAILY #30 chew Atorvastatin [Lipitor] 40 mg PO DAILY #30 tab Levothyroxine [Synthroid] 25 mcg PO DAILY@0630 #30 tab - Follow Up Plan Condition: GOOD Disposition: HOME/ ROUTINE Instructions: Chest Pain (DC), Hypertension (DC) Additional Instructions: Please follow up with cardiothoracic surgeon, Dr. Watson, by calling and making an appointment. Follow up with CHF within 1 week Follow up with assistant principal Dr. Valdes Referrals: [facility] [Outside] Balta Gutiérrez MD [Staff Provider] - Ayden Watson MD [Staff Provider] - <Natasha Girard Batool - Last Filed: 12/03/18 18:15> Provider - Provider Date of Admission: 12/01/18 14:58 Attending physician: Erwin Leger Consults: 11/30/18 06:14 Cardiology Consult Routine Comment: Consulting Provider: Balta Gutiérrez Consulting Physician: Balta Gutiérrez Reason for Consult: Chest Pain/abnormal EKG 11/30/18 17:53 Physician Consult Routine Comment: Consulting Provider: Ayden Watson Consulting Physician: Ayden Watson Reason for Consult: ? ASD Hospital Course - Lab Results Lab Results: Micro Results 11/30/18 08:46 Naris MRSA Culture (Admit) - Final MRSA NOT DETECTED Most Recent Lab Values WBC 5.7 K/uL (4.8-10.8) 12/02/18 04:45 RBC 4.90 Mil/uL (3.80-5.20) 12/02/18 04:45 Hgb 13.5 g/dL (12.0-16.0) 12/02/18 04:45 Hct 41.4 % (34.0-47.0) 12/02/18 04:45 MCV 84.5 fl (81.0-99.0) 12/02/18 04:45 MCH 27.6 pg (27.0-31.0) 12/02/18 04:45 MCHC 32.6 g/dL (33.0-37.0) L 12/02/18 04:45 RDW 13.9 % (11.5-14.5) 12/02/18 04:45 Plt Count 298 K/uL (130-400) 12/02/18 04:45 MPV 7.6 fl (7.2-11.7) 11/29/18 21:36 Neut % (Auto) 52.8 % (50.0-75.0) 11/29/18 21:36 Lymph % (Auto) 35.3 % (20.0-40.0) 11/29/18 21:36 [place] % (Auto) 8.3 % (0.0-10.0) 11/29/18 21:36 Eos % (Auto) 2.7 % (0.0-4.0) 11/29/18 21:36 Baso % (Auto) 0.9 % (0.0-2.0) 11/29/18 21:36 Neut # (Auto) 3.3 K/uL (1.8-7.0) 11/29/18 21:36 Lymph # (Auto) 2.2 K/uL (1.0-4.3) 11/29/18 21:36 [place] # (Auto) 0.5 K/uL (0.0-0.8) 11/29/18 21:36 Eos # (Auto) 0.2 K/uL (0.0-0.7) 11/29/18 21:36 Baso # (Auto) 0.1 K/uL (0.0-0.2) 11/29/18 21:36 PT 12.0 Seconds (9.8-13.1) 12/02/18 04:45 INR 1.1 12/02/18 04:45 APTT 32.9 Seconds (25.6-37.1) 12/02/18 04:45 D-Dimer, Quantitative < 200 ng/mlDDU (0-230) 11/30/18 14:30 Sodium 140 mmol/l (132-148) 12/02/18 04:45 Potassium 4.0 MMOL/L (3.6-5.0) 12/02/18 04:45 Chloride 103 mmol/L (98-107) 12/02/18 04:45 Carbon Dioxide 25 mmol/L (22-30) 12/02/18 04:45 Anion Gap 16 (10-20) 12/02/18 04:45 BUN 26 mg/dl (7-17) H 12/02/18 04:45 Creatinine 0.8 mg/dl (0.7-1.2) 12/02/18 04:45 Est GFR ( Amer) > 60 12/02/18 04:45 Est GFR (Non-Af Amer) > 60 12/02/18 04:45 Random Glucose 113 mg/dL (65-105) H 12/02/18 04:45 Hemoglobin A1c 6.2 % (4.2-6.5) 11/30/18 00:00 Calcium 10.1 mg/dL (8.4-10.2) 12/02/18 04:45 Total Bilirubin 0.5 mg/dl (0.2-1.3) 12/02/18 04:45 AST 32 U/L (14-36) 12/02/18 04:45 ALT 30 U/L (9-52) 12/02/18 04:45 Alkaline Phosphatase 107 U/L (38-126) 12/02/18 04:45 Troponin I < 0.0120 ng/mL (0.00-0.120) 11/30/18 11:50 Total Protein 7.9 G/DL (6.3-8.2) 12/02/18 04:45 Albumin 4.3 g/dL (3.5-5.0) 12/02/18 04:45 Globulin 3.6 gm/dL (2.2-3.9) 12/02/18 04:45 Albumin/Globulin Ratio 1.2 (1.0-2.1) 12/02/18 04:45 Triglycerides 237 mg/DL (0-149) H 11/29/18 21:36 Cholesterol 209 mg/dL (0-199) H 11/29/18 21:36 LDL Cholesterol Direct 96 mg/dL (0-129) 11/29/18 21:36 HDL Cholesterol 68 MG/DL (30-70) 11/29/18 21:36 Lipase 75 U/L (23-300) 11/29/18 21:36 Free T4 0.83 ng/dL (0.78-2.19) 11/30/18 07:25 TSH 3rd Generation 6.26 mIU/ML (0.46-4.68) H 11/29/18 21:36 Urine Opiates Screen Negative (NEGATIVE) 12/01/18 05:00 Urine Methadone Screen Negative (NEGATIVE) 12/01/18 05:00 Ur Barbiturates Screen Negative (NEGATIVE) 12/01/18 05:00 Ur Phencyclidine Scrn Negative (NEGATIVE) 12/01/18 05:00 Ur Amphetamines Screen Negative (NEGATIVE) 12/01/18 05:00 U Benzodiazepines Scrn Negative (NEGATIVE) 12/01/18 05:00 U Oth Cocaine Metabols Negative (NEGATIVE) 12/01/18 05:00 U Cannabinoids Screen Negative (NEGATIVE) 12/01/18 05:00 Attending/Attestation - Attestation I have personally seen and examined this patient.: Yes I have fully participated in the care of the patient.: Yes I have reviewed all pertinent clinical information, including history, physical exam and plan: Yes Notes (Text): Chest Pain, ACS ruled out, pain likely musculoskeletal ASD ruled out Atrioventricular Shunting from Coronary Arteries seen on Cardiac Catheterization HTN Hypothyroidism d/c home cont ASA, statin and Norvasc cont low dose Levothyroxine ff up with Cardio and CT Surgery as outpt ff up FP clinic in 1-2 wks
== END 2018-12-03 13:49 | disposition home or self-care (01) | DRG 192 ==
LOC: H.ER 20:11 → H.ERHOLD 22:51 → H.ICU/CCU 11-30 02:38 → OBSVTOIN 12-01 14:58 → H.ICU/CCU 12-02 11:29 → H.TEL 12-02 21:44
PROVIDERS: ADMIT Internal Medicine; ATTEND Internal Medicine
PROC: 3E02340 Introduction of Influenza Vaccine into Muscle, Percutaneous Approach (ICD-10-PCS; principal; 2018-11-30)
PROC: 3E0234Z Introduction of Serum, Toxoid and Vaccine into Muscle, Percutaneous Approach (ICD-10-PCS; 2018-11-30)
PROC: 4A023N8 Measurement of Cardiac Sampling and Pressure, Bilateral, Percutaneous Approach (ICD-10-PCS; 2018-12-02)
PROC: B206YZZ Plain Radiography of Right and Left Heart using Other Contrast (ICD-10-PCS; 2018-12-02)
DX: R07.89 Other chest pain (principal); I27.20 Pulmonary hypertension, unspecified; I10 Essential (primary) hypertension; E03.9 Hypothyroidism, unspecified; E78.5 Hyperlipidemia, unspecified; Z79.82 Long term (current) use of aspirin; Z23 Encounter for immunization